=== PATIENT | female | born 1990 | race Caucasian/White ===

== ENCOUNTER 2018-10-13 18:08 | Emergency (ER) | payer OTHER ==
[2018-10-13] MEDS ORDERED: diphenhydrAMINE 50 MG/ML VIAL ONE (18:41)
[2018-10-13] MEDS ORDERED: predniSONE 20 MG TAB ONE (19:24)
== END 2018-10-13 19:30 | disposition home or self-care (01) ==
LOC: MADERS 18:08
DX: S50.862D Insect bite (nonvenomous) of left forearm, subsequent encounter (principal); S50.861D Insect bite (nonvenomous) of right forearm, subsequent encounter; S80.862D Insect bite (nonvenomous), left lower leg, subsequent encounter; S80.861D Insect bite (nonvenomous), right lower leg, subsequent encounter; S90.562D Insect bite (nonvenomous), left ankle, subsequent encounter; S90.561D Insect bite (nonvenomous), right ankle, subsequent encounter; S90.862D Insect bite (nonvenomous), left foot, subsequent encounter; S90.861D Insect bite (nonvenomous), right foot, subsequent encounter; W57.XXXD Bitten or stung by nonvenomous insect and other nonvenomous arthropods, subsequent encounter
CPT/HCPCS: 96372; J1200; J7512

== ENCOUNTER 2020-05-08 21:02 | Emergency (ER) | payer OTHER, MEDICAID ==
--- NOTE | 2020-05-08 21:45 | RAD ---
RIGHT KNEE FOUR VIEWS: 05/08/20 HISTORY: Knee injury. There is no signs of fracture, dislocation or joint effusion. Minimal spurring at the patellofemoral joint is noted. IMPRESSION: No acute injury. POS: OFF
[2020-05-08] MEDS ORDERED: Ibuprofen 800 MG TAB ONE (21:56)
== END 2020-05-08 21:59 | disposition home or self-care (01) ==
LOC: MADERS 21:02
DX: M25.561 Pain in right knee (principal); F41.9 Anxiety disorder, unspecified; Z79.899 Other long term (current) drug therapy; W17.89XA Other fall from one level to another, initial encounter